=== PATIENT | male | born 1945 | race Caucasian/White ===

== ENCOUNTER 2017-03-18 12:49 | Day surgery (SDC) | payer OTHER ==
[~2017-03-18] VITALS: Ht 160 cm; Wt 70.5 kg
[2017-03-18] MEDS ORDERED: HTN MEDICATION (14:43)
[2017-03-18] MEDS ORDERED: METFORMIN (14:43)
[2017-03-18 14:45] VITALS: Ht 160 cm; Wt 70.5 kg
[2017-03-18 16:30] VITALS: BP 168/79; PULSE 67; RESP 19
--- NOTE | 2017-03-18 17:06 | OPPN ---
Date/Time of Note Date/Time of Note DATE: 03/18/17 TIME: 17:05 Operative Report Preoperative Diagnosis Screening Postoperative Diagnosis Internal hemorrhoids Operation/Procedure Performed Colonoscopy Provider: RADHAMES RUIZ MD Anesthesia Type: moderate sedation Estimated blood loss: none Transfusion Required: no Specimen: none Grafts/Implants: none Complications: no RADHAMES RUIZ MD Mar 18, 2017 17:06
[2017-03-18] MEDS ORDERED: MIDAZOLAM 1 MG/ML 2 ML INJ ONE ×2 (17:08→17:09)
[2017-03-18] MEDS ORDERED: FENTAnyl 50 MCG/ML VIAL ONE (17:08)
[2017-03-18 17:30] VITALS: BP 138/83; PULSE 72; RESP 24
--- NOTE | 2017-03-18 18:00 | GILP ---
DATE OF PROCEDURE: 03/18/2017 PROCEDURE PERFORMED: Colonoscopy. SURGEON: Dr. Jett Javier. PREOPERATIVE DIAGNOSIS: Screening colonoscopy. POSTOPERATIVE DIAGNOSES: 1. Colonoscopy all the way to the cecum. 2. Internal hemorrhoids. 3. No colon neoplasm was identified. INDICATION: Mr. Pop Hercules is a 71-year-old male patient who was scheduled for screening colonoscopy. The procedure and possible complications were well explained to the patient. He understood and consented to the procedure. DESCRIPTION OF PROCEDURE: Under the influence of fentanyl and Versed, the colonoscope was carefully introduced the rectum. Under direct vision, it was advanced all the way to the cecum. Findings, the patient had internal hemorrhoids. No colitis or neoplasm was identified. He tolerated the procedure very well. There was no complication from the procedure. At the end of procedure, he was awake with stable vital signs and he was discharged home in care of his family. IMPRESSION: 1. Colonoscopy all the way to the cecum. 2. Internal hemorrhoids. 3. No colon neoplasm was identified. PLAN: Next screening colonoscopy in 10 years. Dictated By: MD ROBERT Vallejo/yannick/regla /Document#: [id number]
== END 2017-03-18 17:20 | disposition home or self-care (01) ==
LOC: GIL 12:49
PROVIDERS: ATTEND Internal Medicine Gastroenterology
DX: Z12.11 Encounter for screening for malignant neoplasm of colon (principal); K64.8 Other hemorrhoids
CPT/HCPCS: 45378; J2250; J3010